=== PATIENT | male | born 1955 | race Caucasian/White ===

== ENCOUNTER 2025-01-20 20:55 | Emergency (ER) | payer MEDICARE, OTHER, SELFPAY ==
[2025-01-20 21:02] VITALS: BP 161/81
[2025-01-20 21:12] VITALS: BP 136/72
[2025-01-20 21:36] LABS: Hematocrit 48.0 % (39.0-52.0); Hemoglobin 16.8 g/dL (13.0-18.0); Mean Corp Hgb Conc. 35.0 g/dL (33.0-37.0); Mean Corpuscular Volume 82.2 fL (80.0-94.0); Nucleated Red Blood Cells % 0 % (-); Platelet Count 173 10^3/uL (130-400); Red Cell Dist. Width 13.3 % (11.5-14.5)
[2025-01-20 21:58] LABS: ALT (SGPT) 34 U/L (0-50); AST (SGOT) 36 U/L (17-59); Albumin 4.8 g/dl (3.5-5.0); Alkaline Phosphatase 70 U/L (38-126); Blood Urea Nitrogen 22 mg/dl (9-20); Calcium 9.5 mg/dl (8.4-10.2); Carbon Dioxide 21 mmol/L (22-30); Chloride 102 mmol/L (98-107); Glucose 132 mg/dl (70-99); Potassium 4.7 mmol/L (3.5-5.1); Sodium 131 mmol/L (135-145); Total Protein 8.2 g/dl (6.3-8.2); eGFR > 60.00
[2025-01-20 22:23] LABS: Urine Character Clear (Clear)
[2025-01-20 22:36] VITALS: BMI 34.0
[2025-01-20 22:45] LABS: Urine Squamous Cell 0-2 /LPF (Few); Urine White Cell 40-50 /HPF (0-5)
[2025-01-21] MEDS: ROCEPHIN 1000 MG IV (00:32)
[2025-01-21] MEDS: TYLENOL 1000 MG PO (00:32)
[2025-01-21 00:33] VITALS: BP 128/76
--- NOTE | 2025-01-21 02:42 | ED.GENMED ---
History of Present Illness
General
Chief Complaint: Male Genito-Urinary Symptoms
Time Seen by Provider: 01/20/25 23:09
Nursing documentation reviewed up to this point in time: agreed with
History of Present Illness
History of Present Illness:
69-year-old male presents to the ER for evaluation of urinary frequency and lack of urinary control. Patient admits that he has been using a lot of kratom lately. He is also concerned because he may have been exposed to mold on a recent worksite.
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 He denies any shortness of breath or chest pain. He denies any fevers or chills. He states that he previously had been seen by urology but has not had any recent instrumentation. Patient reports mild
persistent back pain, unchanged from baseline. No direct injury or trauma. No peripheral edema. No paresthesias to arms or legs.
Past History
Past History
ED Past Medical History: None
ED Past Surgical History: Negative Cardiac
Social History
Tobacco: Non-smoker
Alcohol: None
Drug: None
Personal:
Living: with family
Employment: Not employed
Family History
Family History: Cancer (Mother with stomach cancer) and Other (Kidney stone)
Review of Systems
Review of Systems
Allergies reviewed?: Yes
Phy Exam
Physical Exam
Physical Exam:
Patient is awake, alert, disheveled but in no acute distress, mucous membranes moist, conjunctiva pink, heart regular rate and rhythm no murmurs or ectopy, lungs are clear to auscultation without wheezes rales or rhonchi, abdomen is soft, obese,
nontender, back exam is nontender on palpation midline thoracic or lumbar spine, no paraspinal hypertonicity noted, no overlying skin changes, bilateral lower extremities with 2+ DP pulses present, no erythema, no rashes, brisk cap refill to
bilateral toes, moving easily on the stretcher without assistance, GCS is 15
Course
Orders/Labs/Results
Orders:
Orders
07/30/25 21:26
Complete Blood Count/With Diff Urgent
Comprehensive Metabolic Panel Urgent
01/20/25 22:05
Urinalysis Reflex To Culture Urgent
Date Specimen was Collected: 01/20/25
Time Specimen was Collected: 21:09
Urine Microscopic Reflex Cult Urgent
Urine Culture Urgent
SEAN Source: U
Specimen Description:
Date Specimen was Collected: 01/20/25
Time Specimen was Collected: 21:09
01/20/25 23:09
Bladder Scan- Treatment ONCE
01/20/25 23:44
CefTRIAXone [Rocephin] 1,000 mg IV NOW STA
01/21/25 00:14
Acetaminophen [Tylenol] 1,000 mg PO NOW STA
01/21/25 00:16
Sterile Water [Sterile Water For Injection] 10 ml .ROUTE .[facility]
Abnormal Lab Results
01/20/25 01/20/25
21:26 22:05
Absolute Lymphs (auto) 0.4 L 10^3/uL
(1.2-3.4)
Absolute Monos (auto) 0.8 H 10^3/uL
(0.1-0.6)
Lymphocytes % 8.1 L %
(20.5-51.1)
Monocytes % 15.3 H %
(1.7-9.3)
Sodium 131 L mmol/L
(135-145)
Carbon Dioxide 21 L mmol/L
(22-30)
BUN 22 H mg/dl
(9-20)
Glucose 132 H mg/dl
(70-99)
Total Bilirubin 1.5 H mg/dl
(0.2-1.3)
Ur Occult Blood Reflex 1+ A
(Negative)
Urine Nitrite (Reflex) Positive A
(Negative)
Leukocyte Esterase Rfl 3+ A
(Negative)
Urine RBC 3-6 A /HPF
(0-2)
Urine WBC (Reflex) 40-50 A /HPF
(0-5)
Urine Bacteria (Reflex) Moderate A
(Negative)
Urine Albumin (Reflex) 2+ A
(Neg - Trace)
01/20/25 21:26
01/20/25 21:26
White blood count reassuring, kidney function preserved, urinalysis consistent with infection
Vital Signs
Initial and Last Documented VS:
Initial Vital Signs
Temp Pulse Resp BP Pulse Ox
99.7 F 103 18 161/81 98
01/20/25 21:02 01/20/25 21:02 01/20/25 21:02 01/20/25 21:02 01/20/25 21:02
Last Documented Vital Signs
Temp Pulse Resp BP Pulse Ox
102.8 F H 89 18 128/76 94
01/21/25 00:33 01/21/25 00:33 01/21/25 00:33 01/21/25 00:33 01/21/25 02:44
MDM/Problems Addressed
Differential Diagnosis Includes:
Differential diagnosis to consider but not limited to urinary tract infection, polysubstance use disorder, acute kidney injury, dehydration, along with other etiologies considered
Chronic conditions affecting care:
Polysubstance use disorder
*Pulse Oximetry
SaO2: 94
Oxygen Mode of Delivery: Room air
Patient hypoxic: no
*Critical Care Note
Total Time (30-74mins, 75-104mins- exclusive of procedures): Not Applicable
Update Note
Update Note:
Patient resting comfortably in no acute distress. Patient was given IV Rocephin for treatment of urinary tract infection. He has no evidence for urinary retention. I discussed with patient need to follow-up with his urologist for reevaluation and
further care. He has no fever and has overall benign appearance. He expressed understanding of return precautions and had no questions prior to leaving the department.
ED Attending Note
-
Portions of this chart may have been created with voice recognition software.� Occasional wrong word or��sound alike� substitutions may have occurred due to the inherent limitations of voice recognition software.
Discharge Plan
Departure
Patient Disposition: Home (Routine Discharge)
Date of Disposition: 01/21/25
Time of Disposition: 01:56
Patient with high blood pressure during this ER visit?: Yes
Discharge Problem:
Urinary tract infection, substance use disorder
Prescriptions:
New
sulfamethoxazole-trimethoprim [Bactrim DS] 800-160 mg tablet
1 tab PO BID Qty: 28 0RF
No Action
acetaminophen 325 mg Tablet
650 mg PO Q6H PRN (Reason: pain)
ibuprofen [Motrin] 400 mg Tablet
400 mg PO Q6H PRN (Reason: pain)
Referrals:
Juan A Mills MD [Family Provider, Family Practice]
Activity Restrictions/Additional Instructions:
Complete course of antibiotics as prescribed. Encourage fluids. Please avoid using kratom. Please speak with your care physician with regard to substance use disorder. Please contact your urologist to schedule appointment for reevaluation and
further care. Return to the ER for any concerns
Interventions
Interventions:
*Risk Screen - Suicide Last Done: 01/20/25 21:02
*General Assessment Last Done: 01/20/25 21:02
*Neglect/Abuse Screening Last Done: 01/20/25 21:02
*ED- Fall Risk Assessment Last Done: 01/20/25 21:02
*ED COVID-19 Vaccine History Last Done: 01/20/25 21:02
ED-Male Genitourinary Assessment Last Done: 01/20/25 22:37
Discharge Date and Time
Print Language: GREEK
[2025-01-21 04:16] VITALS: BP 158/79
== END 2025-01-21 04:19 | disposition home or self-care (01) ==
LOC: EMR 20:55
PROVIDERS: Emergency Medicine; EMERGENCY PHYSICIAN Emergency Medicine; FAMILY PHYSICIAN Family Medicine
DX: N39.0 Urinary tract infection, site not specified (principal); F19.10 Other psychoactive substance abuse, uncomplicated; R35.0 Frequency of micturition
CPT/HCPCS: 99283; 80053; 81003; 81015; 85025; 87077; 87086; 87186